=== PATIENT | female | born 1945 | race Caucasian/White ===

== ENCOUNTER 2022-02-07 08:00 | Observation (INO) | payer OTHER, SELFPAY ==
[2022-01-30 12:44] VITALS: BMI 42.3
[2022-02-06] VITALS (14 sets, daily range): BP systolic 120–158; BP diastolic 46–85; PULSE 60–76; RESP 16–21; TEMP 35.7–36.9; O2SAT 91–98; BMI 40.6
[2022-02-06 10:04] LABS: COVID19 -Nasal RAPID Negative (Negative)
[2022-02-06] MEDS: ACETAMINOPHEN 325 MG TABLET 975 MG PO (10:20)
[2022-02-06] MEDS: PREGABALIN 75 MG CAPSULE PO (10:21)
[2022-02-06] MEDS: CELECOXIB 200 MG CAPSULE PO (10:21)
[2022-02-06] MEDS: LACTATED RINGERS 1,000 ML 42 ML IV ×2 (10:28→12:33)
[2022-02-06] MEDS: VANCOMYCIN 1,000 MG/200 ML PIGGYBACK 200 MG IV (10:29)
--- NOTE | 2022-02-06 10:47 | PM.PREOP ---
Pre-operative Note COVID-19 COVID-19 status: Negative Interval Note History & Physical reviewed/Exam performed by Physician: Yes Changes to H&P: No
--- NOTE | 2022-02-06 10:48 | PM.OP.1 ---
Operative Date/Time/Diagnoses Date of procedure: 02/06/22 Time of procedure: 01:12 Pre-op diagnosis: Left knee osteoarthritis Post-op diagnosis: same Procedure & Clinicians Procedure: Left total knee arthroplasty Same procedure as scheduled: Yes Indications: The patient has had progressively worsening left knee pain with radiographic changes consistent with arthritis. Non-operative management has failed and the patient has requested total knee replacement. The risks, benefits and alternatives to surgery were discussed with the patient prior to proceeding. Risks discussed included, but were not limited to, failure to relieve pain, stiffness, infection, nerve damage, deep venous thrombosis, pulmonary embolism, stroke, coma, heart attack, permanent paralysis and , as well as the potential need for eventual revision of the prosthetic. She Surgeon: Marleni Stover Online [employer] Specialist: Nahum Mcclendon Anesthesia Type: Spinal and Sedation Operative Notes Findings: Severe left knee arthritis Closure Type: primary Specimen(s): none sent Prosthetic devices, grafts, tissues, transplants, or devices: Stover and nephew size 3 femur, size 2 tibia, +9 poly, 35 x 7-1/2 mm patella Estimated Blood Loss (mL): 250 Blood products transfused: none Tourniquet time (min): 20 Procedure in detail: The patient was seen in the pre-operative area, where the patient identified the left knee as the operative site and this was marked with my initials. The patient received pre-operative antibiotics, and was taken to the operating room and placed on the operative table in the supine position. After satisfactory anesthesia, a time recorder out was performed. The left leg was encircled with a tourniquet about the proximal thigh, and the leg was prepared from the toes to the tourniquet with ChloroPrep in the usual fashion and draped through sterile drapes. The leg was elevated and exsanguinated with Eschmark bandage and the tourniquet inflated to 300 mmHg pressure. The knee was approached through an approximately 18 cm incision centered over the patella and carried into the knee through a medial parapatellar arthrotomy. A portion of the medial and lateral meniscus was resected. Soft tissue was carefully mobilized around the patella the patella was measured with a caliper. It was clearly a venous tourniquet and the tourniquet was put down after 4 minutes re elevated for 16 minutes but it was clear that it was working as a venous tourniquet and was deflated and left down throughout the rest of the procedure. She had substantial osteophytes off of the superior aspect of her patella which were carefully removed. She did have severe patella [place] and I finished the patella after I had done the distal femoral and proximal tibial cut in order to provide additional space in mobilization of the patellofemoral joint. Bone was resected from the patella and the patellar height was reconstituted with an appropriate sized patellar component. A cover was then placed on the patella. A small amount of additional medial and lateral meniscus was resected. The distal femur was cut at 5?. A [+2] cut was used. It looked like an appropriate distal femoral cut and the cut was made without difficulty. An extramedullary guide was used for the tibial cut. 10 mm was resected off the least affected side. The tibia was prepared. The rotation was assessed. The patient was placed in extension residual medial and lateral meniscus as well as any residual bone was carefully resected. [No] additional tibia was resected. Hemostasis was achieved especially posteriorly. Additional local was injected into the posterior capsule. The extension gap was assessed and additional releases for gap balancing were performed as necessary. It was checked with the gap cattle dipper. The femoral component was trial was placed and the notch was finished. The rotation was assessed and the appropriate size femoral guide was placed on the distal femur and finishing cuts were made. There was no evidence of notching. The anterior, posterior and chamfer cuts were then made. The posterior osteophytes and soft tissues were then removed. The posterior capsule was injected with part of a mixture of 60 ml 0.25% Marcaine mixed with 20 ml Exparel for post operative pain control. The remainder of this mixture was injected into the capsule and subcutaneous tissues during cement curing. The tibial and femoral components were then placed and the knee placed through a range of motion. Range of motion was [0-130], with good stability throughout the range. The trials were then removed, and the tibia was finished. The bone was prepared with pulsatile lavage, and dried with a sponge. Cement was applied and the final prosthetics placed. Excess cement was removed during and after cement curing. A brief Betadine soak was performed. After confirming there was no extruded cement posteriorly, the final tibial insert was placed. The knee was copiously irrigated and the tourniquet deflated. Hemostasis was obtained with the [Aquamantys system]. I specifically used an Aquamantys because of the venous tourniquet in order to improve hemostasis. It was quite effective. An child care center assistant director was required for retraction hemostasis and intraoperative positioning. A drain was placed and brought out superolaterally. The capsule was closed with interrupted nonabsorbable suture. The subcutaneous layer was closed with barbed sutures, and the skin with a running 3-0 V-Lock suture and Surgical glue. An Aquacel Ag dressing was applied and the patient was taken to recovery having tolerated the procedure well. Complications: none Post-operative Condition: stable Disposition: Acute Care Plan for aftercare: The patient will be maintained on a standard total knee replacement protocol with weight bearing as tolerated. The patient will receive aspirin and sequential compression devices for DVT prophylaxis. The patient will be discharged home when safe for the home environment.
[2022-02-06] MEDS: CEFAZOLIN 2 GM/20 ML SYRINGE IV ×2 (11:30→20:14)
--- NOTE | 2022-02-06 11:33 | SUR.PREOP ---
Block start time [1056] . Monitoring initiated and maintained throughout procedure. Oxygen and medications given per anesthesiologist instructions. Patient remained stable throughout procedure, no adverse reactions noted. Block end time [1103].
[2022-02-06] MEDS: TRANEXAMIC ACID 1,000 MG VIAL 1000 MG INJ (11:40)
--- NOTE | 2022-02-06 12:08 | SUR.OPER ---
Supine on padded OR bed. Pillow under head, arms secured on padded armboards <90 degree abduction. Safety belt across torso. Non-operative leg secured with tape over blanket over lower leg. Operative leg secured in DeMayo positioner. Foam padded brace at thigh of operative leg.
[2022-02-06] MEDS: BUPIVACAINE LIPOSOME 266 MG/20 ML VIAL INJ (12:47)
[2022-02-06] MEDS: BUPIVACAINE 0.5% (PF) 30 ML, EPINEPHrine 0.15 MG INJ (12:47)
[2022-02-06] MEDS: SODIUM CHLORIDE IRRIG SOLUTION 250 ML, POVIDONE-IODINE SPONGE STICKS 1 APPLIC IRR (13:37)
[2022-02-06] MEDS: ONDANSETRON 4 MG/2 ML INJ IV (15:20)
[2022-02-06] MEDS: OXYCODONE/ACETAMINOPHEN 5/325 TABLET 1 TAB PO (15:21)
--- NOTE | 2022-02-06 15:58 | DI.RAD.S_ITS ---
PROCEDURE: XR KNEE LT 1TO2V INDICATIONS: prosthesis placement TECHNIQUE: 2 view(s) of the knee acquired. COMPARISON: [facility] Shailesh Dale, CR, XR KNEE ARTHRITIC SERIES BI, 11/23/2021, 14:02. FINDINGS: Bones: Patient is status post knee joint arthroplasty. Hardware components are in expected positions. Visualized bony structures are intact. Soft tissues: Overlying postoperative changes are noted. Vascular calcifications indicate atherosclerosis. IMPRESSION: Expected immediate postoperative appearance of left TKA. Dictated by: Jaron Ndiaye [facility] Interpreted: Rosie Thomason MD on 02/06/2022 at 14:51 Transcribed by: BRENDAN on 02/06/2022 at 14:53 Approved by: Rosie Thomason M.D. on 03/08/2022 at 8:32
--- NOTE | 2022-02-06 16:12 | PT-IP ANOTE ---
Physical therapy order received and chart reviewed. Pt is not on the floor yet. Will follow-up tomorrow for evaluation.
[2022-02-06] MEDS: LACTATED RINGERS 1,000 ML 100 ML IV (16:32)
[2022-02-06] MEDS: CODEINE/ACETAMINOPHEN 30/300 TABLET 1 TAB PO (16:41)
[2022-02-06] MEDS: OXYCODONE IR 10 MG TABLET PO ×3 (16:41→23:16)
[2022-02-06] MEDS: DOCUSATE 100 MG CAPSULE PO (20:13)
[2022-02-06] MEDS: GABAPENTIN 300 MG CAPSULE 900 MG PO (20:13)
[2022-02-06] MEDS: lisinopriL 10 MG TABLET PO (20:13)
[2022-02-06] MEDS: ASPIRIN EC 81 MG TABLET PO (20:13)
[2022-02-06] MEDS: METFORMIN HCL 500 MG TABLET 1000 MG PO (20:13)
[2022-02-06] MEDS: METOPROLOL IR 25 MG TABLET PO (21:36)
[2022-02-06] MEDS: INSULIN NPH/REG 70-30 100 UNIT/ML 3ML VIAL 30 UNIT SUBCUT (21:37)
[2022-02-06] MEDS: clonazePAM 0.5 MG TABLET 2 MG PO (21:42)
[2022-02-06] MEDS: ACETAMINOPHEN 325 MG TABLET 650 MG PO (23:16)
[2022-02-07] VITALS (7 sets, daily range): BP systolic 133–172; BP diastolic 58–76; PULSE 70–94; RESP 16–18; TEMP 36.2–37.3; O2SAT 91–96
[2022-02-07] MEDS: OXYCODONE IR 10 MG TABLET PO ×4 (02:54→15:57)
[2022-02-07] MEDS: CEFAZOLIN 2 GM/20 ML SYRINGE IV (03:03)
[2022-02-07] MEDS: ACETAMINOPHEN 325 MG TABLET 650 MG PO ×3 (06:33→20:06)
[2022-02-07 06:34] LABS: Hematocrit 31.1 % (36-46); Hemoglobin 9.9 g/dL (12.0-16.0)
--- NOTE | 2022-02-07 07:49 | PM.PNPO.1 ---
Subjective Subjective Date Patient Seen: 02/07/22 Time Patient Seen: 07:49 Interval history: Pt sitting up in bed, tearful due to pain. Complains of severe pain throughout leg and says it exceeds what she was expecting. Has a 'leaky bladder' and is not having difficulty urinating, but is wearing a brief due to incontinence. Denies N/V. Plans to go home with help from her two 14 year old grandchildren and her , who has MS. Her son-in-law will also be available for help. Exam Vital Signs (past 8 hours): - 02/07/22 05:57 Temperature 98.2 F Pulse Rate 70 Respiratory Rate 16 Blood Pressure 133/58 L Pulse Oximetry 94 Oxygen Flow Rate 0 Oxygen Delivery Method CPAP Oxygen Flow Rate 0 Narrative Exam Narrative: 5/5 strength in hip flexors, quadriceps, hamstrings, DF, PF, EHL bilaterally. Sensation to light touch intact throughout BLE. Calves soft, compressible, nontender and without palpable cords or masses. LUCAS dressing functioning, CDI. Objective Labs Result Diagrams: 02/07/22 05:47 Labs: Laboratory Results - last 24 hr 02/06/22 02/07/22 09:26 05:47 Hgb 9.9 L Hct 31.1 L SARS-CoV-2 (PCR) Negative PFSH Medical History (Updated 02/07/22 @ 07:54 by Ca Bonilla PA-C) Arrhythmia CAD (coronary artery disease) DDD (degenerative disc disease), lumbar Diabetes WESTFALL (dyspnea on exertion) Easy bruisability GERD (gastroesophageal reflux disease) HLD (hyperlipidemia) HTN (hypertension) Myocardial infarction (2015) ELIZA on CPAP Osteoarthritis Sciatica Surgical History (Updated 02/07/22 @ 07:54 by Ca Bonilla PA-C) History of arthroplasty of right knee (2004) History of cardiac cath (01/17/18) History of hysterectomy History of orthopedic surgery History of surgery on arm Hx of appendectomy Hx of bladder repair surgery (1999) Hx of cholecystectomy Hx of heart artery stent (01/2018) Hx of tonsillectomy S/P CABG x 4 (2015) Social History household members: spouse, family and children Smoking Status: Never smoker alcohol intake: current Assessment & Plan Post-op Assessment and plan (1) Total knee replacement status: Assessment and Plan narrative: PT today. Will add vistaril for help with pain control. Likely discharge home tomorrow. Continue ASA and SCDs for VTE prophylaxis. (2) Acute postoperative anemia due to expected blood loss: Assessment and Plan narrative: Asymptomatic, no intervention needed at this concepcion. (3) Morbid obesity: Postoperative Procedures: Procedures Operation Date: 02/06/22 11:15 Actual Procedure Side Surgeon p Total Knee Arthroplasty Left Marleni Stover MD Postoperative day: 1 Quality VTE Deep Vein Thrombosis/Pulmonary Embolism Present on Admission: No
[2022-02-07] MEDS: hydrOXYzine pamoate 25 MG CAPSULE PO ×4 (08:50→20:06)
--- NOTE | 2022-02-07 09:20 | CM.DANOTE ---
DCP Note Payor: Ashely PCP: Carson Mcnamara MD Pt is a 76 y.o. F who was admitted post L total Knee replacement on 02/06/22. Pt has a Hx of cardiac disease, Diabetes, degenerative disc disease, GERD, HLD, Osteoarthritis, and sciatica. DCP met with pt bedside this morning. Pt was laying in bed watching TV. DCP introduced herself and her role. Pt states that she currently lives with her , daughter and her 2 grandsons and 1 granddaughter is able to stay at home with her and help their grandma pt states. Pt states that she is fairly independent at baseline and uses a walker when the pain in her knee is bad. Pt states that her family might not be able to be there all the time and she is open to Home Health with [facility], as her used this agency in the past. Pt is to work with physical therapy today and get evaluation. If it is determined that she can go home on Home Health, DCP with work with MD to get Home Health Orders and set up HH for pt. Whiteboard was updated with contact information and instructed to call. DCP to continue to follow pt case. DCP: Pt to work with PT today for evaluation. Possible discharge tomorrow with HH orders if needed. yUen Terrazas RN/BOSSMAN Discharge Planning/Care Management Advanced directive, confirm from FAMILY Start: 02/06/22 16:49 Freq: Q24H Status: Active Protocol: Document 02/06/22 17:08 CJW (Rec: 02/06/22 17:14 CJW [id number]) Advance Directive, confirm on record Time 17:13 Person contacted pt Copy received No CM Discharge Assessment Start: 02/07/22 09:17 Freq: Status: Active Protocol: Document 02/07/22 09:17 AJ (Rec: 02/07/22 09:20 AJ [id number]) Discharge Planning Assessment Assigned Medical Accounts Receivable Specialist Uyen Terrazas RN/BOSSMAN Advance Directives? Yes Advance Directives on File No History Provided By Patient Prior Living Arrangements House Household Members spouse,family,children Independent with ADL's Yes Is patient alert and oriented? Yes DME Already Rented / Owned FWW / Walker Barriers to Discharge No Referrals Initiated None needed Additional Comment At this time. Might need some HH. Whiteboard Updated in Patient Room with Yes name and ext. # of Medical Accounts Receivable Specialist Comment Instructed to call Review Status In Process Please Provide Date Initial DC 02/07/22 Assessment Was Performed Next Review Type Continued Stay Review Pre-Anesthesia Assessment Start: 01/30/22 12:44 Freq: Status: Active Protocol: Document 01/30/22 12:44 CAB (Rec: 01/30/22 13:58 CAB [id number]) Pre-Anesthesia Assessment Patient Information Reviewed Via Phone Assessment Assessment Completed With Patient Diagnostic Results BMP/CMP,CBC,EKG Comment Outside labs/ECG (2020) scanned, COVID screen-RAPID on admit Primary Care Provider Carson Mcnamara Seen Specialist in Last 12 Months Yes Specialist Seen Erp Pm,Orthopedist Primary Language [place] Citizen Manufacturing Controls Engineer Required No Height 152.4 cm Weight 98.43 kg Body Mass Index (BMI) 42.3 Hearing Ability Normal Visual Assist Glasses Dentition Type Full- Upper & Lower Other Aids Yes: CPAP Hx Anesthesia Reactions No Hx Family Anesthesia Reaction No Hx Malignant Hyperthermia No Hx Blood Transfusions No Anesthesia Review Requested Yes: Surgeon requested re: Cardiac history alcohol intake current alcohol intake frequency holidays/special occasions only Smoking Status Never smoker Substance Use Type does not use Pain Present Pain Reported Musculoskeletal Symptoms Abnormal Gait,Back Pain, Difficulty Walking,Joint Pain History of Falling (Recent or History of No ) Patient is completely paralyzed or No completely immobile Prosthesis or Orthotic Device Front Wheel Walker Mental Status Oriented to own ability Is patient on oxygen? No Does patient have WESTFALL/SOB Yes: WESTFALL with walking, resolves with rest Hx Sleep Apnea Yes CPAP/BIPAP use prescribed and used routinely Will Bring CPAP/BIPAP DOS Yes Currently Taking a Beta Eva Yes: Metoprolol Can You Climb a Flight of Stairs Without No SOB Hx Chest Pain No Hx SOB Yes: WESTFALL with walking, resolves with rest Hx Syncope or Dizziness No Anti-Coagulant Therapy Yes: ASA 81mg-pt will check w/ PCP if needed to hold Has a Erp Pm Yes: [facility]-Last visit 08/10/21 Cardiac Testing Echo @ [facility] 09/29/20 Hx Pacemaker/ICD No Pacemaker Rep Required? No Cardiac Clearance Received Yes Comment Cardiac records scanned Diet Type At Home Regular dysphagia No Gastrointestinal Symptoms Diarrhea,Reflux Bladder Pattern Incontinent Urinary Catheter Present No Hx Urinary Self Catheterization No Diabetes Yes Patient No Lactating No Presence of External or Internal Medical Yes: CPAP, right knee, cardiac Devices stent/CABG Have you had any close contact with No someone diagnosed with COVID-19? Received a COVID vaccine? Yes Received all doses? Yes Marital Status Lives With spouse,family,children Prior Living Arrangements House Number of Floors (Floors) One Floor Support System Child/Children,Spouse Does the Patient Have Assistance After Yes: Lives with family who Surgery will aslo assist w/care at DC Patient Discharge Plan Description Return Home Comment Pt advised overnight length of stay per surgeon Feels Safe in Current Environment Yes Been Physically Hurt or Threatened By a No Person in Current Environment Do you have thoughts of harming yourself None or others? Are you currently considering suicide? No Do you have a plan to hurt yourself or No Plan others? Do You Have Any Spiritual Beliefs That No May Affect Your HC Choices? Do You Have Any Cultural Practices That No May Affect Your HC Choices? Comment Billy Who Can We Speak to About Patient's Care Family, friends Identifying Code for Release of Patient Declines to issue Information Health Care Proxy/Next of Kin Sandra (daughter) Health Care Proxy Emergency Contact Name Bev (granddaughter) Emergency Contact Advance Directives? Yes Advance Directives on File No Requested Patient Bring Advanced Yes Directives DOS Power of Sewer Pipe Layer No PAC Instructions Bring CPAP/BIPAP,Diabetes instructions,Do not shave/clip surgical site,Durable medical equipment,Medications to take /avoid,Nasal antibiotic,No ETOH/petroleum product on skin DOS,NPO,Post-op transportation,Sensory aids, Sturdy shoes/comfortable clothes,Do not bring valuables and remove jewelry
[2022-02-07] MEDS: METOPROLOL IR 25 MG TABLET PO ×2 (09:31→21:06)
[2022-02-07] MEDS: ASPIRIN EC 81 MG TABLET PO ×2 (09:31→21:07)
[2022-02-07] MEDS: PANTOPRAZOLE DR 40 MG TABLET PO (09:32)
[2022-02-07] MEDS: METFORMIN HCL 500 MG TABLET 1000 MG PO ×2 (09:33→21:06)
[2022-02-07] MEDS: ISOSORBIDE MONONITRATE ER 30 MG TABLET PO (09:33)
[2022-02-07] MEDS: lisinopriL 10 MG TABLET PO ×2 (09:34→21:06)
[2022-02-07] MEDS: INSULIN NPH/REG 70-30 100 UNIT/ML 3ML VIAL 30 UNIT SUBCUT ×2 (09:41→21:01)
--- NOTE | 2022-02-07 10:11 | PT.IIE ---
Current Diagnoses Acute posthemorrhagic anemia (02/06/22) Morbid (severe) obesity due to excess calories (02/06/22) Unilateral primary osteoarthritis, left knee (02/06/22) Presence of unspecified artificial knee joint (02/06/22) Surgery Performed Operation Date: 02/06/22 11:15 Actual Procedures p Total Knee Arthroplasty(Left) - Marleni Stover MD Surgical History (Last Reviewed 02/06/22 @ 09:53 by Ferny Morgan, RN) History of arthroplasty of right knee (2004) History of cardiac cath (01/17/18) History of hysterectomy History of orthopedic surgery History of surgery on arm Hx of appendectomy Hx of bladder repair surgery (1999) Hx of cholecystectomy Hx of heart artery stent (01/2018) Hx of tonsillectomy S/P CABG x 4 (2015) Medical History (Last Reviewed 02/06/22 @ 09:53 by Ferny Morgan, ELIEL) Arrhythmia CAD (coronary artery disease) DDD (degenerative disc disease), lumbar Diabetes WESTFALL (dyspnea on exertion) Easy bruisability GERD (gastroesophageal reflux disease) HLD (hyperlipidemia) HTN (hypertension) Myocardial infarction (2015) ELIZA on CPAP Osteoarthritis Sciatica Physical Therapy Inpatient Evaluation/Re-Eval M1 PT/OT-IP Prior Functional Status Start: 02/07/22 12:40 Freq: NEEDED Status: Active Protocol: Document 02/07/22 10:11 AB (Rec: 02/07/22 12:57 AB [id number]) Medical Review Prior Functional Status Medical History Reviewed Yes Communication able to make needs known Mobility and Gait pt sttaed that she is modified independent with all mobilities and ambulation without AD but occasionally uses a 4WW depending on knee pain Social History Household Members spouse,family,children Living Arrangements House Number of Floors (Floors) One Floor Number of Stairs To Enter/Railing? 2 platform steps to enter the house Home Environment High Toilet,Tub/Shower Home Equipment Front Wheel Walker,Four Wheel Walker,Shower Seat with Backrest,Hand Held Shower,Grab Bars In Shower Additional Social History Comment pt stated that she will have her spouse, daughter, JOSE R and grand children to assist her pt stated that she will just sponge bathe for now M2 PT-IP Current Condition Start: 02/07/22 12:40 Freq: NEEDED Status: Active Protocol: Document 02/07/22 10:11 AB (Rec: 02/07/22 12:57 AB [id number]) Physical Therapy Current Condition Current Condition Evaluation Date 02/07/22 Treatment Diagnosis s/p L TKA; difficulty in walking Onset Date 02/06/22 M3 PT-IP Subjective Start: 02/07/22 12:40 Freq: NEEDED Status: Active Protocol: Document 02/07/22 10:11 AB (Rec: 02/07/22 12:57 AB [email or web address]) Subjective Physical Therapy Visit Type Type Initial Evaluation Visit Start Time 10:11 Visit Stop Time 11:02 Total Visit Minutes 51 Number of GARNETTER Visits 0 Physical Therapy Visit Comments Patient Comments agreeable to do PT Therapy Pain Assessment Pain When Pain Assessed At Rest Pain Present Pain Present Pain Reported Location Left Knee Intensity 6 Scale Used Numeric (0 - 10) Pain Management Techniques Apply Cold,Distraction, Elevation,Modification of Treatment,Re-positioning, Timing of Activity with Medications M4 PT-IP Mobility and Gait Start: 02/07/22 12:40 Freq: NEEDED Status: Active Protocol: Document 02/07/22 10:11 AB (Rec: 02/07/22 12:57 AB [id number]) PT-Bed Mobility Assessment Supine to Sit Supine to Sit Maximum Assistance,1 Person Assistance,2 Person Assistance ,Bedrails Scooting Scooting to Edge of Bed Maximum Assistance PT-Transfer Assessment Sit to and From Stand Sit to and from Stand Maximum Assistance,1 Person Assistance,Use of Upper Extremities Equipment Transfer Assistive Device Gait Belt,Front Wheeled Walker Orthotic/Prosthetic Devices or Brace: No Transfers Transfer Destination Chair Transfer Technique ambulated Transfer Ability Level of Assist Moderate Assistance,Maximum Assistance,1 Person Assistance ,Use of Upper Extremities Comments Mobility Comments completed supine to sit max A x 1-2 and max cues. increase posterior trunk lean in sitting requiring min A and max cues for positioning. max A for scooting to EOB. requested to use the toilet. max A with sit to stand and mod to max A with step transfer to bedside commode. completed sit to stand from commode max A and max A for standing balance with posterior trunk lean using FWW . NAC assisted with hygiene care and brief management. ambulated to the chair using FWW mod A and max cues. positioned pt on the chair. call light and table placed within reach. set up caregiver training at 830 am tomorrow with pt's daughter. Gait Assessment Gait Gait Assistance Required: Moderate Assistance Distance (Feet) 12 Able to Maintain Weight Bearing Status Yes During Gait Assistive Devices Assistive Device Gait Belt,Front Wheeled Walker Orthotic/Prosthetic Devices or Brace: No Gait Deviations General Gait Pattern Antalgic,Decreased Stride Length,Decreased Feet Clearance Factors Limiting Gait Function Factors Limiting Gait Function Decreased Activity Tolerance, Decreased Strength,Limited Range of Motion,Pain,Poor Balance,Poor Safety Awareness PT-Balance Assessment Sitting Balance and Reactions Static Sitting Balance Ability Fair Dynamic Sitting Balance Ability Fair Standing Balance and Reactions Static Standing Balance Ability Poor Dynamic Standing Balance Ability Poor Device Used FWW M5 PT-IP Objective Assessments Start: 02/07/22 12:40 Freq: NEEDED Status: Active Protocol: Document 02/07/22 10:11 AB (Rec: 02/07/22 12:57 AB [id number]) Orientation Orientation/Cognition Level of Alertness Alert Orientation Name,Place,Situation Language Function Ability Hard of Hearing Safety Awareness Decreased Safety Awareness Gross Range of Motion Lower Extremity ROM Assessment Left Impaired Impairments L knee flexion: ~ 50 deg Strength Lower Extremity Strength Assessment Left Impaired Hip 3+/5 Knee 3+/5 Sensation Assessment Sensation Gross Sensation WNL Muscle Tone Muscle Tone WNL Yes M6 PT-IP Treatment Start: 02/07/22 12:40 Freq: NEEDED Status: Active Protocol: Document 02/07/22 10:11 AB (Rec: 02/07/22 12:57 AB [email or web address]) Physical Therapy Treatment Education Education Provided Precautions,Weight Bearing Status,Post-Op Packet,Safety M7 PT-IP Assessment and Plan Start: 02/07/22 12:40 Freq: NEEDED Status: Active Protocol: Document 02/07/22 10:11 AB (Rec: 02/07/22 12:57 AB [email or web address]) PT Summary Assessment and Plan Potential Rehabilitation Potential Good Status of Condition at Evaluation Stable Summary Impairments Pain,ROM,Strength,Balance, Coordination,Sensation,Tone, Cognition,Bed Mobility, Transfers,Gait,Activity Tolerance Assessment Summary pt requiring mod to max A with mobility using FWW. caregiver training set up for tomorrow at 830 am. daughter unable to come today. pt also will not be able to go to outpt PT and stated that there is nobody that can drive her to outpt PT . pt will require HHPT. will continue to assess progress. Goals Bed Mobility Goal Standby Assistance Transfer Goal Standby Assistance,Front Wheeled Walker Gait Goal Standby Assistance,Front Wheel Walker Gait Distance 200 Other Goals up/down 2 platform steps using FWW CGA Days to Meet Goals 10 Frequency of Treatment Frequency Of Treatment Twice a Day Treatment Plan Physical Therapy Treatment Plan Bed Mobility Training,Transfer Training,Gait Training, Therapeutic Exercise,Balance Retraining,Post Op Education, Discharge Planning,Hot or Cold Pack,Neuromuscular Re-ed, Coordination Retraining,Manual Therapy Other Recommendations and Next Treatment caregiver trainin02/08/22 @ [facility] 830 am Weight Bearing Status Weight Bearing Status Weight Bear as Tolerated Allowed Weight Bearing Amount (enter % LLE WBAT or #) (%) Recommendations To Nursing Amount of Assist Needed 1 Person Assist Discharge Recommendations PT Discharge Recommendations Home with 11/03 Assist Available,Home Health Transportation Needs at Discharge Private Vehicle,Wheelchair/ Cabulance
--- NOTE | 2022-02-07 15:37 | PT.IPTN ---
Current Diagnoses Acute posthemorrhagic anemia (02/07/22) Morbid (severe) obesity due to excess calories (02/07/22) Unilateral primary osteoarthritis, left knee (02/07/22) Presence of unspecified artificial knee joint (02/07/22) Surgery Performed Operation Date: 02/06/22 11:15 Actual Procedures p Total Knee Arthroplasty(Left) - Marleni Stover MD Physical Therapy Treatment Note M2 PT-IP Current Condition Start: 02/07/22 12:40 Freq: NEEDED Status: Active Protocol: Document 02/07/22 10:11 AB (Rec: 02/07/22 12:57 AB [email or web address]) Physical Therapy Current Condition Current Condition Evaluation Date 02/07/22 Treatment Diagnosis s/p L TKA; difficulty in walking Onset Date 02/06/22 M3 PT-IP Subjective Start: 02/07/22 12:40 Freq: NEEDED Status: Active Protocol: Document 02/07/22 15:14 KS (Rec: 02/07/22 15:54 KS [id number]) Subjective Physical Therapy Visit Type Type Treatment Note Visit Start Time 15:14 Visit Stop Time 15:37 Total Visit Minutes 23 Notes IMAGE SCIENTIST present for assistance Number of SURVEY COORDINATOR Visits 1 Physical Therapy Visit Comments Patient Comments agreeable to do PT Therapy Pain Assessment Pain When Pain Assessed At Rest Pain Present Pain Present Pain Reported M4 PT-IP Mobility and Gait Start: 02/07/22 12:40 Freq: NEEDED Status: Active Protocol: Document 02/07/22 15:14 KS (Rec: 02/07/22 15:54 KS [id number]) PT-Bed Mobility Assessment Supine to Sit Supine to Sit Maximum Assistance,2 Person Assistance,Head of Bed Elevated Sit to Supine Sit to Supine Maximum Assistance,2 Person Assistance Scooting Scooting to Edge of Bed Maximum Assistance PT-Transfer Assessment Sit to and From Stand Sit to and from Stand Maximum Assistance,1 Person Assistance,Use of Upper Extremities Equipment Transfer Assistive Device Gait Belt,Front Wheeled Walker Orthotic/Prosthetic Devices or Brace: No Transfers Transfer Destination Bed Transfer Technique Lateral steps towards HOB Transfer Ability Level of Assist Maximum Assistance,Use of Upper Extremities Comments Mobility Comments Pt in bed upon arrival and hesitant to participate due to pain. IMAGE SCIENTIST present and reports difficult transfer back to bed previously. Pt Max A x2 for sup<>sit w/ HOB raised and scooting EOB. Max A for sit<> stand w/ FWW and max cues for hand placement and sequencing. Pt reports high pain when standing, able to take two small steps laterally towards HOB w/ Max A and step by step cues and FWW mgmt. She then took seated rest break, sit<> stand again Max A and took 3 additional small steps towards HOB w/ Max A, cues and FWW mgmt. Pt expressed fatigue, O2 ranging from 84-90% on RA. Max A x2 for sit<>sup. Pt left in bed w/ IMAGE SCIENTIST in room. Gait Assessment Gait Gait Assistance Required: Maximum Assistance Distance (Feet) 2 Able to Maintain Weight Bearing Status Yes During Gait Assistive Devices Assistive Device Gait Belt,Front Wheeled Walker Orthotic/Prosthetic Devices or Brace: No Gait Deviations General Gait Pattern Antalgic,Decreased Stride Length,Decreased Feet Clearance Factors Limiting Gait Function Factors Limiting Gait Function Decreased Activity Tolerance, Decreased Strength,Limited Range of Motion,Pain,Poor Balance,Poor Safety Awareness Comments Gait Comments Lateral steps towards HOB only . See mobility for details. Stair Climbing Assessment Comments Stair Climbing Comments Unable at this time. PT-Balance Assessment Sitting Balance and Reactions Static Sitting Balance Ability Fair Dynamic Sitting Balance Ability Fair Standing Balance and Reactions Static Standing Balance Ability Poor Dynamic Standing Balance Ability Poor Device Used FWW M5 PT-IP Objective Assessments Start: 02/07/22 12:40 Freq: NEEDED Status: Active Protocol: Document 02/07/22 10:11 AB (Rec: 02/07/22 12:57 AB [id number]) Orientation Orientation/Cognition Level of Alertness Alert Orientation Name,Place,Situation Language Function Ability Hard of Hearing Safety Awareness Decreased Safety Awareness Gross Range of Motion Lower Extremity ROM Assessment Left Impaired Impairments L knee flexion: ~ 50 deg Strength Lower Extremity Strength Assessment Left Impaired Hip 3+/5 Knee 3+/5 Sensation Assessment Sensation Gross Sensation WNL Muscle Tone Muscle Tone WNL Yes M6 PT-IP Treatment Start: 02/07/22 12:40 Freq: NEEDED Status: Active Protocol: Document 02/07/22 15:14 KS (Rec: 02/07/22 15:54 KS [id number]) Physical Therapy Treatment Education Education Provided Precautions,Weight Bearing Status,Post-Op Packet,Safety M7 PT-IP Assessment and Plan Start: 02/07/22 12:40 Freq: NEEDED Status: Active Protocol: Document 02/07/22 15:14 CAROLE (Rec: 02/07/22 15:54 KS [id number]) PT Summary Assessment and Plan Potential Rehabilitation Potential Good Status of Condition at Evaluation Stable Summary Impairments Pain,ROM,Strength,Balance, Coordination,Sensation,Tone, Cognition,Bed Mobility, Transfers,Gait,Activity Tolerance Assessment Summary Pt Max A x2 for bed mobility and Max A for sit<>Stand w/ FWW this PM. She required step by step cues w/ tasks including cues to not pull on FWW to stand. In standing she could only tolerate 2 steps, then seated rest break and then 3 additional small lateral steps to be closer to head of bed. There is caregiver training scheduled for 8:30 tomorrow 02/08, however at this time recommending SNF to improve strength and functional mobility due to pts increased need for assist. If she does go home, she will need to complete caregiver training, increase ambulation distance, complete stair training and receive HHPT. Goals Bed Mobility Goal Standby Assistance Transfer Goal Standby Assistance,Front Wheeled Walker Gait Goal Standby Assistance,Front Wheel Walker Gait Distance 200 Other Goals up/down 2 platform steps using FWW CGA Days to Meet Goals 10 Frequency of Treatment Frequency Of Treatment Twice a Day Treatment Plan Physical Therapy Treatment Plan Bed Mobility Training,Transfer Training,Gait Training, Therapeutic Exercise,Balance Retraining,Post Op Education, Discharge Planning,Hot or Cold Pack,Neuromuscular Re-ed, Coordination Retraining,Manual Therapy Other Recommendations and Next Treatment caregiver trainin02/08/22 @ [facility] 830 am Weight Bearing Status Weight Bearing Status Weight Bear as Tolerated Allowed Weight Bearing Amount (enter % LLE WBAT or #) (%) Recommendations To Nursing Amount of Assist Needed 2 Person Assist,3 or More Person Assist Discharge Recommendations PT Discharge Recommendations Home with 11/03 Assist Available,Home Health,SNF Rehab Transportation Needs at Discharge Private Vehicle,Wheelchair/ Cabulance
[2022-02-07] MEDS: GABAPENTIN 300 MG CAPSULE 900 MG PO (21:06)
[2022-02-07] MEDS: DOCUSATE 100 MG CAPSULE PO (21:07)
[2022-02-07] MEDS: clonazePAM 0.5 MG TABLET 2 MG PO (21:07)
[2022-02-08] VITALS (9 sets, daily range): BP systolic 117–177; BP diastolic 56–81; PULSE 70–103; RESP 15–18; TEMP 36.3–36.8; O2SAT 92–96
[2022-02-08] MEDS: ACETAMINOPHEN 325 MG TABLET 650 MG PO ×4 (03:30→23:18)
--- NOTE | 2022-02-08 07:31 | P.DS_ITS ---
History of Present Illness History of Present Illness Date Patient Seen: 02/08/22 Time Patient Seen: 07:32 Chief complaint: Knee pain Narrative: Patient's knee pain is [id number]. Denies fever/ chills. No nausea /vomiting. patient does have assistance at home. Discharge Providers Provider Date of admission: 02/07/22 08:00 Discharge Date: 02/08/22 Primary care physician: Carson Mcnamara DO Consults: 01/31/22 08:19 Consult to Anesthesiology Routine Comment: Consulting Provider: Anesthesiologist Reason for consultation: Surgeon requested re: Cardiac history 02/05/22 15:58 Consult to Anesthesiology Routine Comment: Consulting Provider: Anesthesiologist Reason for consultation: Regional block for post operative pain control 02/06/22 10:19 Consult to Respiratory Therapy Evaluate & Treat Comment: Physician Instructions: Evaluate and treat 02/06/22 15:48 Consult to Discharge Planning Routine Comment: Consult to Physical Therapy Evaluate & Treat Comment: Physician Instructions: postop TKA protocol Consult to Respiratory Therapy Evaluate & Treat Comment: Physician Instructions: Evaluate and treat Discharge provider: Nahum Mcclendon PA-C Summary Hospital Course Discharge Diagnosis: Left knee osteoarthritis Hospital Course: Left total knee arthroplasty Same procedure as scheduled: Yes Indications: The patient has had progressively worsening left knee pain with radiographic changes consistent with arthritis. Non-operative management has failed and the patient has requested total knee replacement. The risks, benefits and alternatives to surgery were discussed with the patient prior to proceeding. Risks discussed included, but were not limited to, failure to relieve pain, stif fness, infection, nerve damage, deep venous thrombosis, pulmonary embolism, stroke, coma, heart attack, permanent paralysis and , as well as the potential need for eventual revision of the prosthetic.? She Surgeon: Marleni Stover Home School Coordinator: Nahum Mcclendon Anesthesia Type: Spinal and Sedation Operative Notes Findings: Severe left knee arthritis Closure Type: primary Specimen(s): none sent Prosthetic devices, grafts, tissues, transplants, or devices: Stover and nephew size 3 femur, size 2 tibia, +9 poly, 35 x 7-1/2 mm patella Estimated Blood Loss (mL): 250 Blood products transfused: none Tourniquet time (min): 20 Patient admitted to the hospital for the above-mentioned procedure. Patient consented to the same. Patient underwent left total knee arthroplasty on February 06, 2022. Patient back in her room recovering well as in stable condition. Patient will mobilize with physical therapy this morning. Patient will be discharged home today if safe for home environment. Exam Vital Signs (past 8 hours): - 02/08/22 05:58 Temperature 97.6 F Pulse Rate 70 Respiratory Rate 18 Blood Pressure 117/56 L Pulse Oximetry 96 Oxygen Flow Rate 2 Oxygen Delivery Method Nasal Cannula Oxygen Flow Rate 2 Narrative Exam Narrative: 76-year-old female resting comfortably in bed in no apparent distress. Joy dressing is on and functioning. Motor functions intact bilateral lower extremities. Sensation grossly intact to light touch bilateral lower extremities. Const General: cooperative and comfortable Orientation: alert Objective Labs Result Diagrams: 02/07/22 05:47 [facility] Medical History Arrhythmia CAD (coronary artery disease) DDD (degenerative disc disease), lumbar Diabetes [place]ALL (dyspnea on exertion) Easy bruisability GERD (gastroesophageal reflux disease) HLD (hyperlipidemia) HTN (hypertension) Myocardial infarction (2015) ELIZA on CPAP Osteoarthritis Sciatica Surgical History History of arthroplasty of right knee (2004) History of cardiac cath (01/17/18) History of hysterectomy History of orthopedic surgery History of surgery on arm Hx of appendectomy Hx of bladder repair surgery (1999) Hx of cholecystectomy Hx of heart artery stent (01/2018) Hx of tonsillectomy S/P CABG x 4 (2015) Social History household members: spouse, family and children Smoking Status: Never smoker alcohol intake: current Discharge Assessment & Plan Assessment and Plan Assessment: Patient progressing as expected status post left total knee arthroplasty Plan of Treatment: Mobilize with physical therapy, standard total knee postop protocol Multimodal pain management Aspirin for DVT prophylaxis Joy dressing instructions reviewed Discharge home today in stable condition Discharge Plan Discharge Plan Patient Disposition: Home Provider Discharge Comment: Discharge home today after physical therapy if safe for home environment Discharge orders & Medications Prescriptions: New acetaminophen 325 mg Tablet 650 mg PO Q6HR Qty: 60 0RF aspirin 81 mg Tablet,Delayed Release (Dr/Ec) 81 mg PO BID Qty: 60 0RF docusate sodium 100 mg Capsule 100 mg PO BID Qty: 20 0RF oxycodone 10 mg Tablet 10 mg PO Q3HR PRN (Reason: Pain, Severe (7-10)) Qty: 60 0RF Continued metformin 500 mg Tablet 1,000 mg PO BID isosorbide mononitrate 30 mg Tablet Extended Release 24 Hr 30 mg PO QAM Novolin 70/30 U-100 Insulin 100 unit/mL (70-30) Suspension 30 unit SUBCUT BID pantoprazole 40 mg Tablet,Delayed Release (Dr/Ec) 40 mg PO DAILY lisinopril 10 mg Tablet 10 mg PO BID clonazepam 2 mg Tablet 2 mg PO BEDTIME PRN (Reason: Sleep) Rx Instructions: administer 30 minutes before bedtime gabapentin 300 mg Capsule 900 mg PO BEDTIME metoprolol tartrate 25 mg Tablet 25 mg PO BID Discontinued acetaminophen-codeine 300-30 mg Tablet 1 tab PO Q6H PRN (Reason: Pain) aspirin 81 mg Capsule 81 mg PO DAILY Follow up/Referrals: Carson Mcnamara DO [Primary Care Provider] - Marleni Stover MD [Physician] - As previously scheduled (Follow up with Jossie Childers PA-C on 02/20/2022 @ 1:40 pm at [facility] in [place].) Diet/Activity/Treatments Diet: Carb-consistent/Diabetic Activity: Walk frequently! Cold/Heat Therapy: Ice to knee as needed for pain. Skin/Wound/Dressing Care Report to your healthcare provider any signs of infection, such as:: chills, fever, increased pain, unusual drainage and unusual redness Dressing: May shower; battery pack may get splashed but not saturated. Dressing itself is waterproof. When the batteries on the pack, you may disconne ct the tubing and throw the battery pack away. Leave the dressing on until your appointment in the office. Other wound treatment: Please refer to joy instruction sheet for home reference Visit Report/Discharge Packet Instructions: DI for Knee Replacement, DI for Prescription Opioid Use Stand Alone Forms: Surgery Discharge Discharge Data Primary Care Provider: Carson Mcnamara Attending Provider: Marleni Stover Quality VTE Deep Vein Thrombosis/Pulmonary Embolism Present on Admission: No
--- NOTE | 2022-02-08 08:30 | PT.IPTN ---
Current Diagnoses Acute posthemorrhagic anemia (02/07/22) Morbid (severe) obesity due to excess calories (02/07/22) Unilateral primary osteoarthritis, left knee (02/07/22) Presence of unspecified artificial knee joint (02/07/22) Surgery Performed Operation Date: 02/06/22 11:15 Actual Procedures p Total Knee Arthroplasty(Left) - Marleni Stover MD Physical Therapy Treatment Note M2 PT-IP Current Condition Start: 02/07/22 12:40 Freq: NEEDED Status: Active Protocol: Document 02/07/22 10:11 AB (Rec: 02/07/22 12:57 AB [email or web address]) Physical Therapy Current Condition Current Condition Evaluation Date 02/07/22 Treatment Diagnosis s/p L TKA; difficulty in walking Onset Date 02/06/22 M3 PT-IP Subjective Start: 02/07/22 12:40 Freq: NEEDED Status: Active Protocol: Document 02/08/22 08:30 AB (Rec: 02/08/22 12:36 AB [id number]) Subjective Physical Therapy Visit Type Type Treatment Note Visit Start Time 08:30 Visit Stop Time 09:15 Total Visit Minutes 45 Number of CARPENTER REFRIGERATOR Visits 0 Physical Therapy Visit Comments Patient Comments agreeable to do PT; daughter in room for caregiver training pt c/o increase knee pain 10/ 10 Therapy Pain Assessment Pain When Pain Assessed During Mobility Pain Present Pain Present Pain Reported Location Left Knee Intensity 10 Scale Used Numeric (0 - 10) Pain Management Techniques Apply Cold,Distraction, Modification of Treatment,Re- positioning,Timing of Activity with Medications M4 PT-IP Mobility and Gait Start: 02/07/22 12:40 Freq: NEEDED Status: Active Protocol: Document 02/08/22 08:30 AB (Rec: 02/08/22 12:36 AB [email or web address]) PT-Bed Mobility Assessment Supine to Sit Supine to Sit Maximum Assistance,2 Person Assistance,Head of Bed Elevated,Bedrails Scooting Scooting to Edge of Bed Maximum Assistance PT-Transfer Assessment Sit to and From Stand Sit to and from Stand Maximum Assistance,2 Person Assistance,Use of Upper Extremities Equipment Transfer Assistive Device Front Wheeled Walker Orthotic/Prosthetic Devices or Brace: No Transfers Transfer Destination Chair,Bedside Commode Transfer Technique Stand Step Pivot Transfer Ability Level of Assist Maximum Assistance,2 Person Assistance,Use of Upper Extremities Comments Mobility Comments caregiver training initiated. pt completed supine to sit max A x 2 and max cues. pt stated that she has to use the toilet. bedside comoode positioned next to pt. completed sit to stand x 3 attempts max A x 2 and max cues and step transfer to bedside commode max A x2 and max cues. nurse in room to assist. completed sit to stand from bedside commode max A x 1-2 and max cues and max A for standing balance using fWW for support while nurse assist with hygiene care. pt tends to let go of FWW for support and with increase posterior LOB and max cues for steadiness and use of FWW. pt ambulated towards the chair and completed ~ 8 ft. increase unsteadiness towards end of ambulation with c/o increase knee pain. pt agreeed to sit on the chair. positioned on the chair. call light and table placed within reach. informed pt and daughter regarding SNF recommendation as pt is requiring 2 person assist and unable to tolerate much activity. both agreed. informed transplant case manager. Gait Assessment Gait Gait Assistance Required: Maximum Assistance,1 Person Assist,2 Person Assist Distance (Feet) 8 Able to Maintain Weight Bearing Status Yes During Gait Assistive Devices Assistive Device Gait Belt,Front Wheeled Walker Orthotic/Prosthetic Devices or Brace: No Gait Deviations General Gait Pattern Antalgic,Decreased Stride Length,Decreased Feet Clearance Factors Limiting Gait Function Factors Limiting Gait Function Decreased Activity Tolerance, Decreased Strength,Limited Range of Motion,Pain,Poor Balance,Poor Safety Awareness M5 PT-IP Objective Assessments Start: 02/07/22 12:40 Freq: NEEDED Status: Active Protocol: Document 02/07/22 10:11 AB (Rec: 02/07/22 12:57 AB [id number]) Orientation Orientation/Cognition Level of Alertness Alert Orientation Name,Place,Situation Language Function Ability Hard of Hearing Safety Awareness Decreased Safety Awareness Gross Range of Motion Lower Extremity ROM Assessment Left Impaired Impairments L knee flexion: ~ 50 deg Strength Lower Extremity Strength Assessment Left Impaired Hip 3+/5 Knee 3+/5 Sensation Assessment Sensation Gross Sensation WNL Muscle Tone Muscle Tone WNL Yes M6 PT-IP Treatment Start: 02/07/22 12:40 Freq: NEEDED Status: Active Protocol: Document 02/08/22 08:30 AB (Rec: 02/08/22 12:36 AB [id number]) Physical Therapy Treatment Education Education Provided Safety M7 PT-IP Assessment and Plan Start: 02/07/22 12:40 Freq: NEEDED Status: Active Protocol: Document 02/08/22 08:30 AB (Rec: 02/08/22 12:36 AB [id number]) PT Summary Assessment and Plan Potential Rehabilitation Potential Fair Summary Impairments Pain,ROM,Strength,Balance, Coordination,Sensation,Tone, Cognition,Bed Mobility, Transfers,Gait,Activity Tolerance Progress Towards Goals Slow Progress due to Pain,Slow Progress due to Activity Tolerance Assessment Summary pt requiring max A x 2 with mobility and will require SNF rehab at this time. will continue to assess progress. informed pt and daughter regarding SNF recommendation and agreed. transplant case manager is aware. Goals Bed Mobility Goal Standby Assistance Transfer Goal Standby Assistance,Front Wheeled Walker Gait Goal Standby Assistance,Front Wheel Walker Gait Distance 200 Other Goals up/down 2 platform steps using FWW CGA Days to Meet Goals 10 Frequency of Treatment Frequency Of Treatment Twice a Day Treatment Plan Physical Therapy Treatment Plan Bed Mobility Training,Transfer Training,Gait Training, Therapeutic Exercise,Balance Retraining,Post Op Education, Discharge Planning,Hot or Cold Pack,Neuromuscular Re-ed, Coordination Retraining,Manual Therapy Weight Bearing Status Weight Bearing Status Weight Bear as Tolerated Allowed Weight Bearing Amount (enter % LLE WBAT or #) (%) Recommendations To Nursing Amount of Assist Needed 2 Person Assist,3 or More Person Assist Discharge Recommendations PT Discharge Recommendations SNF Rehab Transportation Needs at Discharge Private Vehicle,Wheelchair/ Cabulance
[2022-02-08] MEDS: OXYCODONE IR 10 MG TABLET PO ×5 (08:43→23:18)
[2022-02-08] MEDS: DOCUSATE 100 MG CAPSULE PO ×2 (08:45→20:19)
[2022-02-08] MEDS: METOPROLOL IR 25 MG TABLET PO ×2 (08:45→20:19)
[2022-02-08] MEDS: lisinopriL 10 MG TABLET PO ×2 (08:45→20:18)
[2022-02-08] MEDS: ISOSORBIDE MONONITRATE ER 30 MG TABLET PO (08:45)
[2022-02-08] MEDS: PANTOPRAZOLE DR 40 MG TABLET PO (08:46)
[2022-02-08] MEDS: METFORMIN HCL 500 MG TABLET 1000 MG PO ×2 (08:46→20:19)
[2022-02-08] MEDS: ASPIRIN EC 81 MG TABLET PO ×2 (08:46→20:18)
--- NOTE | 2022-02-08 10:03 | CM.DPNOTE ---
Emailed referral to [facility] per Uyen. Merna Frazier, CHRISSIE Assist.
[2022-02-08] MEDS: INSULIN NPH/REG 70-30 100 UNIT/ML 3ML VIAL 30 UNIT SUBCUT ×2 (10:37→20:29)
--- NOTE | 2022-02-08 16:06 | PT.IPTN ---
Current Diagnoses Acute posthemorrhagic anemia (02/07/22) Morbid (severe) obesity due to excess calories (02/07/22) Unilateral primary osteoarthritis, left knee (02/07/22) Presence of unspecified artificial knee joint (02/07/22) Surgery Performed Operation Date: 02/06/22 11:15 Actual Procedures p Total Knee Arthroplasty(Left) - Marleni Stover MD Physical Therapy Treatment Note M2 PT-IP Current Condition Start: 02/07/22 12:40 Freq: NEEDED Status: Active Protocol: Document 02/08/22 15:09 SP (Rec: 02/08/22 16:45 SP [id number]) Physical Therapy Current Condition Current Condition Evaluation Date 02/07/22 Treatment Diagnosis s/p L TKA; difficulty in walking Onset Date 02/06/22 M3 PT-IP Subjective Start: 02/07/22 12:40 Freq: NEEDED Status: Active Protocol: Document 02/08/22 15:09 SP (Rec: 02/08/22 16:45 SP [id number]) Subjective Physical Therapy Visit Type Type Treatment Note Visit Start Time 15:09 Visit Stop Time 16:06 Total Visit Minutes 57 Notes Vitals taken during tx: supine BP 124/54, HR 82, SaO2 88-90% on RA. Seated post mobility: BP 160/ 78 HR 89 SaO2 89% on RA. Number of FREIGHT ENGINEER Visits 1 Therapy Pain Assessment Pain When Pain Assessed During Mobility Pain Present Pain Present Pain Reported Location Left Knee Intensity 4 Scale Used 5/10 at rest, 4/10 with mobility Description With Movement Pain Behaviors Facial Grimacing Pain Management Techniques Distraction,Modification of Treatment,Re-positioning M4 PT-IP Mobility and Gait Start: 02/07/22 12:40 Freq: NEEDED Status: Active Protocol: Document 02/08/22 15:09 SP (Rec: 02/08/22 16:45 SP [id number]) PT-Bed Mobility Assessment Supine to Sit Supine to Sit Moderate Assistance,Maximum Assistance,1 Person Assistance ,Head of Bed Elevated,Bedrails Scooting Scooting to Edge of Bed Moderate Assistance,Maximum Assistance PT-Transfer Assessment Sit to and From Stand Sit to and from Stand Moderate Assistance,Maximum Assistance,1 Person Assistance ,Use of Upper Extremities Equipment Transfer Assistive Device Gait Belt,Front Wheeled Walker Orthotic/Prosthetic Devices or Brace: No Transfers Transfer Destination Chair Transfer Technique Stand Step Pivot Transfer Ability Level of Assist Minimal Assistance,Moderate Assistance,1 Person Assistance ,Use of Upper Extremities Comments Mobility Comments FREIGHT ENGINEER instructed LLE post op ex: AP, HS with strap Min A initially then self, SAQ Min A , hip abd w/ strap self. Completed elevated supine>sit w/ use strap on LLE self with cues to EOB and use bed rail on R SBA, Mod A to complete scoot to EOB via transfer pad and trunk righting Mod- max A x1. Seated at EOB close SBA. Sit>stand Mod A, stand step transfer w/ FWW Mod A x1 trunk support and FWW repositioning max cues for sequencing and back up fully, cued not to far front FWW safety, Min A descent chair. Time required rest and breath recovery, 88- 89% SaO2 to 90% on RA. Sit> stand ModA x1 gait to sink and back to chair slow step to patterning self FWW positioning Min A for trunk wt shift and stability, heavy BUE on fWW, stable. Min A sit chair and self scoot back. Pt had bench cushion under BLE andchair alarm donned with all needs in reach. FREIGHT ENGINEER set up CGT with daughter/son while pt onphone 02/09/22 11am. Will continue to assess progress. Gait Assessment Gait Gait Assistance Required: Minimum Assistance,Moderate Assistance,1 Person Assist Distance (Feet) 10 Able to Maintain Weight Bearing Status Yes During Gait Assistive Devices Assistive Device Gait Belt,Front Wheeled Walker Orthotic/Prosthetic Devices or Brace: No Gait Deviations General Gait Pattern Antalgic,Decreased Stride Length,Decreased Feet Clearance,Flexed Trunk,Narrow Based Gait,Step-to Gait Factors Limiting Gait Function Factors Limiting Gait Function Decreased Activity Tolerance, Decreased Strength,Difficulty Following Directions,Limited Range of Motion,Pain,Poor Balance,Poor Safety Awareness, Respiratory Distress Comments Gait Comments Cued for body into FWW near back legs, sequencing BLE and FWW positioning support initially, cued increase stride and clearance and tall posture, heavy BUE WB on FWW. stand step patterning w/ FWW then chair<>sink back. Stair Climbing Assessment Comments Stair Climbing Comments Unable at this time. Will need to complete 2x 1-2 PF step with FWW for safety and ability to return home. PT-Balance Assessment Sitting Balance and Reactions Static Sitting Balance Ability Good Dynamic Sitting Balance Ability Fair Standing Balance and Reactions Static Standing Balance Ability Fair Dynamic Standing Balance Ability Fair Device Used FWW M5 PT-IP Objective Assessments Start: 02/07/22 12:40 Freq: NEEDED Status: Active Protocol: Document 02/07/22 10:11 AB (Rec: 02/07/22 12:57 AB [id number]) Orientation Orientation/Cognition Level of Alertness Alert Orientation Name,Place,Situation Language Function Ability Hard of Hearing Safety Awareness Decreased Safety Awareness Gross Range of Motion Lower Extremity ROM Assessment Left Impaired Impairments L knee flexion: ~ 50 deg Strength Lower Extremity Strength Assessment Left Impaired Hip 3+/5 Knee 3+/5 Sensation Assessment Sensation Gross Sensation WNL Muscle Tone Muscle Tone WNL Yes M6 PT-IP Treatment Start: 02/07/22 12:40 Freq: NEEDED Status: Active Protocol: Document 02/08/22 15:09 SP (Rec: 02/08/22 16:45 SP [id number]) Physical Therapy Treatment Exercises Exercises Ankle Pumps,Quad Sets,Heel Slides,Supine Hip Abduction Knee ROM Measurement L knee approx 40 deg Min A>SBA w/ use gait belt on LLE Education Education Provided Safety M7 PT-IP Assessment and Plan Start: 02/07/22 12:40 Freq: NEEDED Status: Active Protocol: Document 02/08/22 15:09 SP (Rec: 02/08/22 16:45 SP [id number]) PT Summary Assessment and Plan Potential Rehabilitation Potential Fair Status of Condition at Evaluation Stable Summary Impairments Pain,ROM,Strength,Balance, Coordination,Sensation,Tone, Cognition,Bed Mobility, Transfers,Gait,Activity Tolerance Progress Towards Goals Slow Progress due to Pain,Slow Progress due to Activity Tolerance Assessment Summary Pt improved mobility this tx, requiring mod-Max A x 1 with bed mobility (pt has recliner at home) and Mod> Minx1 using FWW during transfer and gait using FWW 10 ft, 5ft. FREIGHT ENGINEER recommending Home 24/ assist vs SNF rehab at this time. Will continue to assess progress. Informed pt and daughter regarding HHPT vs SNF recommendation, depending on stair mgt tomorrow CGT at 11am . Goals Bed Mobility Goal Standby Assistance Transfer Goal Standby Assistance,Front Wheeled Walker Gait Goal Standby Assistance,Front Wheel Walker Gait Distance 200 Other Goals up/down 2 platform steps using FWW CGA Days to Meet Goals 10 Frequency of Treatment Frequency Of Treatment Twice a Day Treatment Plan Physical Therapy Treatment Plan Bed Mobility Training,Transfer Training,Gait Training, Therapeutic Exercise,Balance Retraining,Post Op Education, Discharge Planning,Hot or Cold Pack,Neuromuscular Re-ed, Coordination Retraining,Manual Therapy Other Recommendations and Next Treatment CGT at 11am with daughter or Focus son, bed mob, transfers, gait w/ FWW and 2 PF step mgt. Weight Bearing Status Weight Bearing Status Weight Bear as Tolerated Allowed Weight Bearing Amount (enter % LLE WBAT or #) (%) Recommendations To Nursing Amount of Assist Needed 1 Person Assist Discharge Recommendations PT Discharge Recommendations Home with 11/03 Assist Available,Home Health,SNF Rehab,Home vs SNF Equipment Needed for Home Before Pt has FWW at home to use, Discharge suggested to bring so can assess proper height. Transportation Needs at Discharge Private Vehicle,Wheelchair/ Cabulance
[2022-02-08] MEDS: hydrOXYzine pamoate 25 MG CAPSULE PO (20:18)
[2022-02-08] MEDS: GABAPENTIN 300 MG CAPSULE 900 MG PO (20:20)
[2022-02-08] MEDS: SODIUM CHLORIDE 0.9% FLUSH 10 ML IV (20:55)
[2022-02-09] MEDS: ACETAMINOPHEN 325 MG TABLET 650 MG PO (05:10)
[2022-02-09] MEDS: hydrOXYzine pamoate 25 MG CAPSULE PO (05:11)
[2022-02-09 05:40] VITALS: BP 108/57; PULSE 102; RESP 18; TEMP 36.6; O2SAT 92
--- NOTE | 2022-02-09 07:05 | P.DS_ITS ---
History of Present Illness History of Present Illness Date Patient Seen: 02/09/22 Time Patient Seen: 07:06 Chief complaint: Knee pain Narrative: Operative Date/Time/Diagnoses Date of procedure: 02/06/22 Time of procedure: 01:12 Pre-op diagnosis: Left knee osteoarthritis Post-op diagnosis: same Procedure & Clinicians Procedure: Left total knee arthroplasty Same procedure as scheduled: Yes Indications: The patient has had progressively worsening left knee pain with radiographic changes consistent with arthritis. Non-operative management has failed and the patient has requested total knee replacement. The risks, benefits and alternatives to surgery were discussed with the patient prior to proceeding. Risks discussed included, but were not limited to, failure to relieve pain, stiffness, infection, nerve damage, deep venous thrombosis, pulmonary embolism, stroke, coma, heart attack, permanent paralysis and , as well as the potential need for eventual revision of the prosthetic.? She Surgeon: Marleni Stover Sql Tech: Nahum Mcclendon Anesthesia Type: Spinal and Sedation Operative Notes Findings: Severe left knee arthritis Closure Type: primary Specimen(s): none sent Prosthetic devices, grafts, tissues, transplants, or devices: Stover and nephew size 3 femur, size 2 tibia, +9 poly, 35 x 7-1/2 mm patella Estimated Blood Loss (mL): 250 Blood products transfused: none Tourniquet time (min): 20 Discharge Providers Provider Date of admission: 02/07/22 08:00 Discharge Date: 02/09/22 Primary care physician: Carson Mcnamara DO Consults: 01/31/22 08:19 Consult to Anesthesiology Routine Comment: Consulting Provider: Anesthesiologist Reason for consultation: Surgeon requested re: Cardiac history 02/05/22 15:58 Consult to Anesthesiology Routine Comment: Consulting Provider: Anesthesiologist Reason for consultation: Regional block for post operative pain control 02/06/22 10:19 Consult to Respiratory Therapy Evaluate & Treat Comment: Physician Instructions: Evaluate and treat 02/06/22 15:48 Consult to Discharge Planning Routine Comment: Consult to Physical Therapy Evaluate & Treat Comment: Physician Instructions: postop TKA protocol Consult to Respiratory Therapy Evaluate & Treat Comment: Physician Instructions: Evaluate and treat 02/08/22 08:24 Consult to Home Health Routine Comment: Reason For Exam: Evaluate and treat- PT Discharge provider: Ca Bonilla PA-C Summary Hospital Course Discharge Diagnosis: s/p L TKA Hospital Course: Ms Ortiz's hospital course was notable for pain and difficulty progressing with physical therapy. On the morning of POD# 3, it was still debatable whether she was appropriate for homegoing with family vs SNF. She wished to work with physical therapy again prior to deciding. Her pain was adequately controlled w/ oxycodone 10 mg. Exam Vital Signs (past 8 hours): - 02/08/22 23:41 02/09/22 05:40 Temperature 97.8 F 97.9 F Pulse Rate 100 H 102 H Respiratory Rate 18 18 Blood Pressure 139/66 108/57 L Pulse Oximetry 93 92 Oxygen Flow Rate 0 0 Oxygen Delivery Method Nasal Cannula Oxygen Flow Rate 0 Narrative Exam Narrative: 5/5 DF, PF, EHL on left; minimal effort with quadriceps, hamstrings, hip flexors. LUCAS dressing active, minimal bloody drainage. Calves soft, compressible, nontender and without palpable cords or masses. Objective Labs Result Diagrams: 02/07/22 05:47 [facility] Medical History Arrhythmia CAD (coronary artery disease) DDD (degenerative disc disease), lumbar Diabetes [place] (dyspnea on exertion) Easy bruisability GERD (gastroesophageal reflux disease) HLD (hyperlipidemia) HTN (hypertension) Myocardial infarction (2015) ELIZA on CPAP Osteoarthritis Sciatica Surgical History History of arthroplasty of right knee (2004) History of cardiac cath (01/17/18) History of hysterectomy History of orthopedic surgery History of surgery on arm Hx of appendectomy Hx of bladder repair surgery (1999) Hx of cholecystectomy Hx of heart artery stent (01/2018) Hx of tonsillectomy S/P CABG x 4 (2015) Social History household members: spouse, family and children Smoking Status: Never smoker alcohol intake: current Discharge Assessment & Plan Assessment and Plan Assessment: Patient progressing slower than expected status post left total knee arthroplasty Plan of Treatment: Mobilize with physical therapy, standard total knee postop protocol Multimodal pain management Aspirin for DVT prophylaxis Lucas dressing instructions reviewed Discharge to SNF today in stable condition Discharge Plan Discharge Plan Patient Disposition: SNF Provider Discharge Comment: Discharge home today after physical therapy if safe for home environment I certify the postop hospital half-way care is medically necessary on a continuing basis for any conditions for which he/ she received care during this hospitalization.: Yes The receiving facility has agreed to accept transfer and provide medical treatment.: Yes Discharge orders & Medications Prescriptions: New acetaminophen 325 mg Tablet 650 mg PO Q6HR Qty: 60 0RF aspirin 81 mg Tablet,Delayed Release (Dr/Ec) 81 mg PO BID Qty: 60 0RF docusate sodium 100 mg Capsule 100 mg PO BID Qty: 20 0RF oxycodone 10 mg Tablet 10 mg PO Q3HR PRN (Reason: Pain, Severe (7-10)) Qty: 60 0RF oxycodone 10 mg tablet 10 mg PO Q4H PRN (Reason: pain (scale score 7-10)) Qty: 60 0RF Continued metformin 500 mg Tablet 1,000 mg PO BID isosorbide mononitrate 30 mg Tablet Extended Release 24 Hr 30 mg PO QAM Novolin 70/30 U-100 Insulin 100 unit/mL (70-30) Suspension 30 unit SUBCUT BID pantoprazole 40 mg Tablet,Delayed Release (Dr/Ec) 40 mg PO DAILY lisinopril 10 mg Tablet 10 mg PO BID clonazepam 2 mg Tablet 2 mg PO BEDTIME PRN (Reason: Sleep) Rx Instructions: administer 30 minutes before bedtime gabapentin 300 mg Capsule 900 mg PO BEDTIME metoprolol tartrate 25 mg Tablet 25 mg PO BID Discontinued acetaminophen-codeine 300-30 mg Tablet 1 tab PO Q6H PRN (Reason: Pain) aspirin 81 mg Capsule 81 mg PO DAILY Follow up/Referrals: Carson Mcnamara DO [Primary Care Provider] - Marleni Stover MD [Physician] - As previously scheduled (Follow up with Jossie Childers PA-C on 02/20/2022 @ 1:40 pm at [facility] in [place].) Diet/Activity/Treatments Diet: Carb-consistent/Diabetic Activity: Walk frequently! Cold/Heat Therapy: Ice to knee as needed for pain. Skin/Wound/Dressing Care Report to your healthcare provider any signs of infection, such as:: chills, fever, increased pain, unusual drainage and unusual redness Dressing: May shower; battery pack may get splashed but not saturated. Dressing itself is waterproof. When the batteries on the pack, you may discon nect the tubing and throw the battery pack away. Leave the dressing on until your appointment in the office. Other wound treatment: Please refer to lucas instruction sheet for home reference [facility] Reason for rehabilitation: Post-operative therapy Rehab type: Physical therapy Restrictions to mobility: Weight-bearing as tolerated to left leg. Visit Report/Discharge Packet Instructions: DI for Knee Replacement, DI for Prescription Opioid Use Stand Alone Forms: Surgery Discharge Discharge Data Primary Care Provider: Carson Mcnamara Attending Provider: Marleni Stover VTE Deep Vein Thrombosis/Pulmonary Embolism Present on Admission: No
[2022-02-09 07:50] VITALS: BP 131/64; PULSE 76; RESP 17; TEMP 35.8; O2SAT 93
[2022-02-09] MEDS: DOCUSATE 100 MG CAPSULE PO (08:26)
[2022-02-09] MEDS: ISOSORBIDE MONONITRATE ER 30 MG TABLET PO (08:26)
[2022-02-09] MEDS: METFORMIN HCL 500 MG TABLET 1000 MG PO (08:26)
[2022-02-09] MEDS: lisinopriL 10 MG TABLET PO (08:26)
[2022-02-09] MEDS: ASPIRIN EC 81 MG TABLET PO (08:26)
[2022-02-09] MEDS: METOPROLOL IR 25 MG TABLET PO (08:26)
[2022-02-09] MEDS: PANTOPRAZOLE DR 40 MG TABLET PO (08:26)
[2022-02-09] MEDS: INSULIN NPH/REG 70-30 100 UNIT/ML 3ML VIAL 30 UNIT SUBCUT (08:26)
[2022-02-09] MEDS: SODIUM CHLORIDE 0.9% FLUSH 10 ML IV (08:27)
--- NOTE | 2022-02-09 08:35 | CM.DPC ---
Addendum entered by Uyen Terrazas R.N. 02/09/22 12:59: Spoke with Rebecca @ [facility], they have recieved auth from [employer] and can accept patient today between 2-3 pm today. Pt daughter to transport pt to [facility]. Pt understands that she will need a booster shot upon arrival today and she is in agreement. Pt daughter contacted to let her know the plans for discharge. Pt daughter to arrive by 2 to transport pt to [facility]. Clinicals and rx's to be faxed to [facility]. P: Pt to discharge to [facility] today via daughter POV. ADJ Addendum entered by Uyen Terrazas R.N. 02/09/22 08:42: Rebecca called [facility] to confirm that they can accept the pt. Rebecca to start insurance authQuin Fernandez to follow up with me this afternoon if not sooner. Rebecca states that pt needs another booster and they would be able to provide that to her at their facility if pt is in agreement. If not, pt will need to be in quarantine room. ADJ, RN/ARMANIP Original Note: DCP Note Cont: DCP spoke with Rebecca this morning at [facility]. She is reviewing pt clinicals and if they approved, they will start her [employer] Auth. Rebecca to contact me back later this morning to update. D[facility] to continue to follow. Uyen Terrazas RN/ARMANIP
--- NOTE | 2022-02-09 10:04 | PC.NURSE ---
Addendum entered by Sowmya Desai R.N. 02/09/22 14:55: Patient has been discharged from the hospital, iv taken out ,and report called to [facility]. Daughter took her over. Original Note: Assess- Patients dressing to l.knee is cdi, joy present. Motor intact and flashing green, CMS wnl, and ppx2. Patient is up to commode with one person assist. She denies pain at this time and is resting comfortably and working with PT.
[2022-02-09] MEDS: OXYCODONE IR 10 MG TABLET PO (10:57)
[2022-02-09] MEDS: LACTATED RINGERS 1,000 ML 100 ML IV (10:58)
--- NOTE | 2022-02-09 11:45 | PT.IPTN ---
Current Diagnoses Acute posthemorrhagic anemia (02/07/22) Morbid (severe) obesity due to excess calories (02/07/22) Unilateral primary osteoarthritis, left knee (02/07/22) Presence of unspecified artificial knee joint (02/07/22) Surgery Performed Operation Date: 02/06/22 11:15 Actual Procedures p Total Knee Arthroplasty(Left) - Marleni Stover MD Physical Therapy Treatment Note M2 PT-IP Current Condition Start: 02/07/22 12:40 Freq: NEEDED Status: Active Protocol: Document 02/08/22 15:09 SP (Rec: 02/08/22 16:45 SP [id number]) Physical Therapy Current Condition Current Condition Evaluation Date 02/07/22 Treatment Diagnosis s/p L TKA; difficulty in walking Onset Date 02/06/22 M3 PT-IP Subjective Start: 02/07/22 12:40 Freq: NEEDED Status: Active Protocol: Document 02/09/22 12:59 NBM (Rec: 02/09/22 13:28 NBM [id number]) Subjective Physical Therapy Visit Type Type Treatment Note Visit Start Time 11:23 Visit Stop Time 11:45 Total Visit Minutes 22 Number of ROVING DEPARTMENT END FINDER Visits 2 Physical Therapy Visit Comments Patient Comments daughter in room for caregiver training pt c/o increase knee pain 10/ 10 w/ ambulation. Therapy Pain Assessment Pain When Pain Assessed At Rest Pain Present Pain Present Pain Reported Location Left Knee Intensity 8 Pain Management Techniques Apply Cold,Distraction, Modification of Treatment,Re- positioning M4 PT-IP Mobility and Gait Start: 02/07/22 12:40 Freq: NEEDED Status: Active Protocol: Document 02/09/22 12:59 NBM (Rec: 02/09/22 13:28 NB [id number]) PT-Bed Mobility Assessment Sit to Supine Sit to Supine Maximum Assistance,1 Person Assistance,Head of Bed Elevated,Bedrails Scooting Scooting Up and Down in Bed Maximum Assistance PT-Transfer Assessment Sit to and From Stand Sit to and from Stand Moderate Assistance,Maximum Assistance,1 Person Assistance ,Use of Upper Extremities Equipment Transfer Assistive Device Gait Belt,Front Wheeled Walker Orthotic/Prosthetic Devices or Brace: No Transfers Transfer Destination Bed Transfer Technique Stand Step Pivot Transfer Ability Level of Assist Moderate Assistance,Maximum Assistance,1 Person Assistance ,Use of Upper Extremities Comments Mobility Comments Pt in chair upon arrival and agreeable to PT for ambulation to bed only. Pain reported / 10. Adjusted pt's home FWW. Pt Sit<>Stand w/ Max A, 1PA, and use of BUE w/ cues for hand placement. Pt reported increased pain 10/10 w/ 5ft ambulation to bed. Stand<> Sitting EOB w/ FWW CGA, mod A for hand placement and scooting. Sitting EOB to supine mod A for LE management and scooting up in bed w/ pad . Pt left in bed w/ SCDs, call light and all needs within reach. Gait Assessment Gait Gait Assistance Required: Minimum Assistance,Moderate Assistance,1 Person Assist Distance (Feet) 5 Able to Maintain Weight Bearing Status Yes During Gait Assistive Devices Assistive Device Gait Belt,Front Wheeled Walker Orthotic/Prosthetic Devices or Brace: No Gait Deviations General Gait Pattern Antalgic,Decreased Stride Length,Decreased Feet Clearance,Flexed Trunk,Narrow Based Gait,Step-to Gait Factors Limiting Gait Function Factors Limiting Gait Function Decreased Activity Tolerance, Decreased Strength,Difficulty Following Directions,Limited Range of Motion,Pain,Poor Balance,Poor Safety Awareness, Respiratory Distress Stair Climbing Assessment Comments Stair Climbing Comments Not assessed today due to weakness. PT-Balance Assessment Sitting Balance and Reactions Static Sitting Balance Ability Good Dynamic Sitting Balance Ability Fair Standing Balance and Reactions Static Standing Balance Ability Fair Dynamic Standing Balance Ability Fair Device Used FWW M5 PT-IP Objective Assessments Start: 02/07/22 12:40 Freq: NEEDED Status: Active Protocol: Document 02/07/22 10:11 AB (Rec: 02/07/22 12:57 AB [id number]) Orientation Orientation/Cognition Level of Alertness Alert Orientation Name,Place,Situation Language Function Ability Hard of Hearing Safety Awareness Decreased Safety Awareness Gross Range of Motion Lower Extremity ROM Assessment Left Impaired Impairments L knee flexion: ~ 50 deg Strength Lower Extremity Strength Assessment Left Impaired Hip 3+/5 Knee 3+/5 Sensation Assessment Sensation Gross Sensation WNL Muscle Tone Muscle Tone WNL Yes M6 PT-IP Treatment Start: 02/07/22 12:40 Freq: NEEDED Status: Active Protocol: Document 02/09/22 12:59 NBM (Rec: 02/09/22 13:28 NBM [id number]) Physical Therapy Treatment Education Education Provided Safety M7 PT-IP Assessment and Plan Start: 02/07/22 12:40 Freq: NEEDED Status: Active Protocol: Document 02/09/22 12:59 NB (Rec: 02/09/22 13:28 NB [id number]) PT Summary Assessment and Plan Potential Rehabilitation Potential Fair Status of Condition at Evaluation Stable Summary Impairments Pain,ROM,Strength,Balance, Coordination,Sensation,Tone, Cognition,Bed Mobility, Transfers,Gait,Activity Tolerance Progress Towards Goals Slow Progress due to Pain,Slow Progress due to Activity Tolerance Assessment Summary Pt unable to attempt PF step and is challenged w/ ambulation of ~5 and Sit<> Stand requires 1PA. PT and daughter Sandra in agreement for d/c to SNF instead of home for further conditioning and strengthening. Daughter Mabel notified Case Management during treatment session, and PT notified CM after treatment of recommendation to d/c to SNF. Goals Bed Mobility Goal Standby Assistance Transfer Goal Standby Assistance,Front Wheeled Walker Gait Goal Standby Assistance,Front Wheel Walker Gait Distance 200 Other Goals up/down 2 platform steps using FWW CGA Days to Meet Goals 10 Frequency of Treatment Frequency Of Treatment Twice a Day Treatment Plan Physical Therapy Treatment Plan Bed Mobility Training,Transfer Training,Gait Training, Therapeutic Exercise,Balance Retraining,Post Op Education, Discharge Planning,Hot or Cold Pack,Neuromuscular Re-ed, Coordination Retraining,Manual Therapy Other Recommendations and Next Treatment CGT at 11am with daughter or Focus son, bed mob, transfers, gait w/ FWW and 2 PF step mgt. Weight Bearing Status Weight Bearing Status Weight Bear as Tolerated Allowed Weight Bearing Amount (enter % LLE WBAT or #) (%) Recommendations To Nursing Amount of Assist Needed 1 Person Assist Discharge Recommendations PT Discharge Recommendations Home with 11/03 Assist Available,Home Health,SNF Rehab,Home vs SNF Equipment Needed for Home Before Pt has FWW at home to use, Discharge suggested to bring so can assess proper height. Transportation Needs at Discharge Private Vehicle,Wheelchair/ Cabulance
[2022-02-09 14:16] LABS: COVID19 -Nasal RAPID Negative (Negative)
== END 2022-02-09 14:00 ==
LOC: OR 15:16 → AC 15:16
PROVIDERS: Admitting Provider Orthopaedic Surgery; PCP Family Medicine; Referring Provider Orthopaedic Surgery; Visit Provider Orthopaedic Surgery
PROC: 0SRD0JZ Replacement of Left Knee Joint with Synthetic Substitute, Open Approach (ICD-10-PCS; CPT 27447; principal; 2022-02-06 11:15)
DX: M17.12 Unilateral primary osteoarthritis, left knee (principal); D62 Acute posthemorrhagic anemia; E66.01 Morbid (severe) obesity due to excess calories; G47.33 Obstructive sleep apnea (adult) (pediatric); I10 Essential (primary) hypertension; I25.10 Atherosclerotic heart disease of native coronary artery without angina pectoris; Z20.822 Contact with and (suspected) exposure to COVID-19; Z95.1 Presence of aortocoronary bypass graft; Z79.84 Long term (current) use of oral hypoglycemic drugs; Z68.41 Body mass index [BMI] 40.0-44.9, adult
CPT/HCPCS: 27447; 36415; 64450; 73560; 82962; 85014; 85018; 87635; 94760; 97110; 97116; 97162; 97530; C1776; C9803; G0378; C1713; C9290; J0171; J0690; J2250; J2405; J2704; J3010